=== PATIENT | female | born 1950 | race Caucasian/White ===

== ENCOUNTER 2017-02-15 14:00 | Inpatient (IN) ==
[2017-02-15] MEDS ORDERED: *HR* OxyCODONE Immed Rel 5 MG TABLET PO PRN (14:51)
--- NOTE | 2017-02-15 16:07 | Internal Med History&Physical ---
Date of Encounter: 02/15/17 Time of Encounter: 16:00 Assessment and Plan (1) Status post total left knee replacement Current visit: No Status: Acute Patient with left total knee replacement. Left knee appears slightly swollen but only minimal limits to range of motion noted. Dressing is dry and intact. Patient states pain is currently fairly well controlled with oral medications and Lidoderm patch. Patient been evaluated by physical therapy. We will continue to monitor patient these for pain medications after starting physical therapy. Patient currently using a walker (2) Asthma Current visit: No Status: Chronic No acute issues. Patient with long historyare. of tobacco abuse. Lungs currently are clear and patient denies any dyspnea. No productive cough. We will continue with current medications and plan of care Qualifiers: Asthma severity: unspecified severity Asthma persistence: unspecified Asthma complication type: unspecified Qualified Code(s): J45.909 - Unspecified asthma, uncomplicated (3) Nicotine dependence Current visit: No Status: Chronic No acute issues. Patient along history of smoking. We will continue to monitor patient seen for possible nicotine patch. Will recommend patient for smoking cessation Qualifiers: Nicotine product type: unspecified Substance use status: unspecified nicotine-induced disorder Qualified Code(s): F17.209 - Nicotine dependence, unspecified, with unspecified nicotine-induced disorders (4) HTN (hypertension) Current visit: No Status: Chronic Vital signs are stable. We will continue with current medications Qualifiers: Hypertension type: unspecified Qualified Code(s): I10 - Essential (primary ) hypertension Internal Medicine - H&P: HPI Admitted From: Intrahospital Transfer Plans for Post Hospital Care: Home History of present illness: Ms. Batista is a 67 year old female who was admitted for physical therapy and rehabilitation after having a left total knee replacement. Patient states a history of rheumatoid arthritis and osteoarthritis and states that she believes that she may need surgery in the future on the right knee. Patient states that she has had an unsteady gait and has lost all her at home for several months prior to surgery. Patient states that her rheumatoid arthritis has progressed and she started on steroid therapy over the past year. Patient currently states that her pain was been fairly well managed her current medications. Patient has a history of COPD, but denies any current shortness of breath or productive cough. Past Med Surg Social Fam HX - Past Medical History Source: patient Medical history: asthma, COPD, hypertension, RA Psychiatric history: no psych history - Social History Smoking Status: Current every day smoker Alcohol use: heavy Drug use: none - Family History Father Hx Family GI Disorders: Yes (Gerd) Internal Medicine - H&P: Meds Albuterol Sulfate [Proair Hfa] 2 puff IH Q4H PRN 01/24/16 [History] Cetirizine HCl [Zyrtec] 10 mg PO DAILY 01/24/16 [History] Montelukast [Singulair] 10 mg PO QPM 01/24/16 [History] Paroxetine [Paxil] 30 mg PO DAILY 01/24/16 [History] amLODIPine [Norvasc] 10 mg PO DAILY 01/24/16 [History] Aspirin Enteric Coated [Aspirin EC] 325 mg PO DAILY 21 Days #21 tablet. [Rx] Alendronate Sodium 70 mg PO WE 02/13/17 [History] Cyanocobalamin (Vitamin B-12) [Vitamin B12] 1,000 mcg PO DAILY 02/13/17 [History ] Etanercept [Enbrel] 50 mg SQ WE 02/13/17 [History] Hydrocodone/Acetaminophen [Osseo 5-325 Tablet] 1 tab PO TID PRN 02/13/17 [ History] Hydroxychloroquine [Plaquenuil] 200 mg PO BID 02/13/17 [History] Linaclotide [Linzess] 290 mcg PO DAILY 02/13/17 [History] Mometasone/Formoterol [Dulera 200 Mcg/5 Mcg Inhaler] 2 puff IH BID 02/13/17 [ History] predniSONE [PredniSONE] 5 mg PO DAILY 02/13/17 [History] raNITIdine HCl [Ranitidine HCl] 150 mg PO DAILY 02/13/17 [History] 3 Allergy/AdvReac Type Severity Reaction Status Date / Time No Known Allergies Allergy Verified 02/03/17 15:41 All Systems PM: A 10-system review of systems was performed and is negative for pertinent findings except as documented above in the HPI. - Constitutional Constitutional: as per HPI, no chills, no fever(s), no night sweats - EENT Eyes: no change in vision, no discharge, no pain, no photophobia Ears: no ear discharge, no ear pain, no tinnitus Nose, mouth and throat: no dysphagia, no nasal discharge, no neck pain, no sore throat - Cardiovascular Cardiovascular ROS IM: no chest pain, no diaphoresis, no dyspnea, no lightheadedness, no palpitations, no syncope - Respiratory Respiratory: as per HPI, no cough, no dyspnea, no wheezing, no excessive phlegm production - Gastrointestinal Gastrointestinal: no abdominal pain, no diarrhea, no hematemesis, no hematochezia, no melena, no nausea, no vomiting - Genitourinary Genitourinary: no change in urinary stream, no dysuria, no flank pain, no hematuria - Musculoskeletal Musculoskeletal ROS IM: joint swelling, no numbness, no tingling Additional comments: She states that she continues to have chronic pain to her right knee and lower back, which she states secondary to her arthritis - Integumentary Integumentary IM: as per HPI, no rash, no unusual bruising - Neurological Neurological ROS: no confusion, no convulsions, no focal weakness, no numbness, no tingling, no tremor(s) - Constitutional General appearance: Present: A&O X 3, pleasant - Head Head exam: Present: atraumatic, normocephalic - Eye Eye exam: Present: PERRL, conjuntiva pink, sclera anicteric Pupils: Present: PERRL - Neck Neck exam general surgery: Present: supple, trachea midline. Absent: lymphadenopathy - Respiratory Respiratory exam: Present: CTAB. Absent: accessory muscle use, rales, rhonchi, wheezes Additional comments: Lungs clear to auscultation and upper malhotra and diminished throughout lower basis - Cardiovascular Cardiovascular exam: Present: RRR, +S1, +S2. Absent: diastolic murmur, gallop, rubs, systolic murmur - GI/Abdominal GI/Abdominal exam: Present: normal bowel sounds, soft, no peritoneal signs. Absent: distended, tenderness - Extremities Exam Extremities exam: Present: warm, radial pulses palpable and symmetrical. Absent : calf tenderness, cyanotic, pedal edema Additional comments: Left knee appears slightly swollen. No ecchymosis. Dressing is dry and intact - Neurological Exam Neurological exam: Present: CN II-XII intact, oriented X3, no focal deficits. Absent: pronater drift, facial droop, speech deficit - Skin Skin exam: Present: dry, intact
[2017-02-15] MEDS: *HR* OxyCODONE Immed Rel 5 MG TABLET PO PRN ×2 (18:02→21:59)
[2017-02-15] MEDS: FORMOTEROL IH SCH (20:40)
[2017-02-15] MEDS: MOMETASONE IH SCH (20:40)
[2017-02-16 05:43] LABS: Basophils % 0.4 %; Eosinophils % 0.2 %; Hematocrit 28.3 % (35.3-44.9); Hemoglobin 9.5 g/dL (11.5-15.4); Immature Granulocytes % 0.5 % (0-4); Lymphocytes # 0.9 K/mcL (0.6-4.6); Mean Corpuscular HGB Conc 33.6 g/dL (31.6-35.5); Mean Corpuscular Hemoglobin 29.8 pg (28.0-33.3); Mean Corpuscular Volume 88.7 fL (83.0-100.0); Mean Platelet Volume 9.8 fL (9.4-12.4); Monocytes # 1.2 K/mcL (0.0-1.3); Monocytes % 11.8 %; Neutrophils # 7.7 K/mcL (1.6-8.9); Platelet Count 413 K/mcL (140-400); Red Blood Count 3.19 M/mcL (3.82-4.97); Red Cell Distribution Width 13.1 % (11.5-14.5); Segmented Neutrophils % 78.1 %
[2017-02-16 05:51] LABS: INR 1.2; Prothrombin Time 12.6 Seconds (9.4-12.1)
[2017-02-16 06:05] LABS: Alanine Aminotransferase 15 Units/L (0-55); Albumin 2.4 g/dL (3.5-5.0); Albumin/Globulin Ratio 0.8 (1.1-2.2); Alkaline Phosphatase 69 Units/L (38-126); Aspartate Amino Transferase 21 Units/L (5-34); BUN/Creatinine Ratio 15 (6-26); Bilirubin,Total 0.6 mg/dL (0.2-1.2); Blood Urea Nitrogen 9 mg/dL (7-20); Calcium 9.2 mg/dL (8.6-10.8); Carbon Dioxide 28 mEq/L (19-29); Chloride 93 mEq/L (98-109); Globulin 3.1 g/dL (2.4-3.5); Glucose 117 mg/dL (70-99); Magnesium 1.8 mg/dL (1.6-2.6); Osmolality,Calculated 270 (280-300); Potassium 3.6 mEq/L (3.5-4.5); Sodium 130 mEq/L (136-145); Total Protein 5.5 g/dL (6.0-8.3); eGFR For African Americans > 60 (> 60); eGFR For Non-African Americans > 60 (> 60)
[2017-02-16 06:07] LABS: BUN/Creatinine Ratio 15 (6-26); Blood Urea Nitrogen 9 mg/dL (7-20); Calcium 9.2 mg/dL (8.6-10.8); Carbon Dioxide 28 mEq/L (19-29); Chloride 93 mEq/L (98-109); Glucose 115 mg/dL (70-99); Osmolality,Calculated 270 (280-300); Potassium 3.6 mEq/L (3.5-4.5); Sodium 130 mEq/L (136-145); eGFR For African Americans > 60 (> 60); eGFR For Non-African Americans > 60 (> 60)
[2017-02-16] MEDS: *HR* OxyCODONE Immed Rel 5 MG TABLET PO PRN ×4 (06:28→21:47)
[2017-02-16] MEDS: amLODIPine 5 MG TABLET PO SCH (09:00)
[2017-02-16] MEDS: Cyanocobalamin (B-12) 1,000 MCG TABLET PO SCH (09:00)
[2017-02-16] MEDS: Famotidine 20 MG TABLET PO SCH (09:00)
[2017-02-16] MEDS: Loratadine 10 MG TABLET PO SCH (09:00)
[2017-02-16] MEDS: FORMOTEROL IH SCH ×2 (09:02→21:47)
[2017-02-16] MEDS: MOMETASONE IH SCH ×2 (09:02→21:47)
[2017-02-16] MEDS: (Linaclotide [Linzess] 290 MCG) PO SCH (09:02)
--- NOTE | 2017-02-16 10:59 | Internal Med Progress Note ---
Date of Encounter: 02/16/17 Time of Encounter: 10:57 - Assessment and plan (1) Status post total left knee replacement Current Visit: No Status: Acute Assessment and plan: pain controlled with oxycodone. continue PT/OT. f/u with ortho as scheduled. (2) Acute blood loss anemia Current Visit: No Status: Acute Assessment and plan: hgb stable. will monitor labs (3) Constipation Current Visit: Yes Status: Acute Assessment and plan: will order miralax Qualifiers: Constipation type: slow transit constipation Qualified Code(s): K59.01 - Slow transit constipation (4) HTN (hypertension) Current Visit: No Status: Chronic Assessment and plan: controlled with norvasc. monitor BP Qualifiers: Hypertension type: unspecified Qualified Code(s): I10 - Essential (primary ) hypertension - Time Spent With Patient less than 15 minutes - Subjective Interval history: pt states left knee pain controlled with oxycodone. incision with drsg dry and intact. no signs of infection. c/o constipation. states last BM was prior to surgery 4 days ago. denies fever, chills, NVD or SOB. participating well with therapy. - Constitutional Vitals: Temp Pulse Resp BP Pulse Ox 99.2 F 89 16 142/73 99 02/16/17 07:37 02/16/17 07:37 02/16/17 07:37 02/16/17 07:37 02/16/17 07:37 General appearance: Present: A&O X 3, pleasant, no acute distress, answers questions appropriately - Head Head exam: Present: atraumatic, normocephalic - Eye Eye exam: Present: PERRL, conjuntiva pink, sclera anicteric Pupils: Present: PERRL - Neck Neck exam general surgery: Present: supple, trachea midline. Absent: lymphadenopathy - Respiratory Respiratory exam: Present: CTAB. Absent: accessory muscle use, rales, rhonchi, wheezes - Cardiovascular Cardiovascular exam: Present: RRR, +S1, +S2. Absent: diastolic murmur, gallop, rubs, systolic murmur - GI/Abdominal GI/Abdominal exam: Present: normal bowel sounds, soft, no peritoneal signs. Absent: distended, tenderness - Extremities Exam Extremities exam: Present: warm, radial pulses palpable and symmetrical. Absent : calf tenderness, cyanotic, pedal edema Additional comments: left knee, slight edema to surrounding incision. drg dry and intact. no signs of infection. - Neurological Exam Neurological exam: Present: CN II-XII intact, oriented X3, no focal deficits. Absent: pronater drift, facial droop, speech deficit - Skin Skin exam: Present: dry, intact Internal Medicine: Result - Labs CBC & Chem 7: 02/16/17 05:05 02/16/17 05:05 Labs: Short CBC 02/16/17 Range/Units 05:05 WBC 9.9 (4.3-11.1) K/mcL Hgb 9.5 L (11.5-15.4) g/dL Hct 28.3 L (35.3-44.9) % Plt Count 413 H (140-400) K/mcL Neutrophils # 7.7 (1.6-8.9) K/mcL BMP 02/16/17 02/16/17 05:05 05:05 Sodium 130 L 130 L Potassium 3.6 3.6 Chloride 93 L 93 L Carbon Dioxide 28 28 BUN 9 9 Creatinine 0.62 0.62 Glucose 115 H 117 H Calcium 9.2 9.2 Liver Function 02/16/17 Range/Units 05:05 Total Bilirubin 0.6 (0.2-1.2) mg/dL AST 21 (5-34) Units/L ALT 15 (0-55) Units/L Alkaline Phosphatase 69 (38-126) Units/L Albumin 2.4 L (3.5-5.0) g/dL - ABG Interpretation ABG results: PT/INR, D-dimer PT 12.6 Seconds (9.4-12.1) H 02/16/17 05:05 - VTE Documentation of Mechanical Device: Graduated compression elastic hosiery Consult Discharge Plan - Plan Referrals: Tawny Ramirez, [employer] GE[employer] MECHANIC [Primary Care Provider] -
[2017-02-17] MEDS: *HR* OxyCODONE Immed Rel 5 MG TABLET PO PRN ×4 (02:22→21:21)
[2017-02-17] MEDS: amLODIPine 5 MG TABLET PO SCH (09:26)
[2017-02-17] MEDS: Loratadine 10 MG TABLET PO SCH (09:26)
[2017-02-17] MEDS: Famotidine 20 MG TABLET PO SCH (09:26)
[2017-02-17] MEDS: Cyanocobalamin (B-12) 1,000 MCG TABLET PO SCH (09:27)
[2017-02-17] MEDS: FORMOTEROL IH SCH ×2 (09:28→21:20)
[2017-02-17] MEDS: MOMETASONE IH SCH ×2 (09:28→21:20)
[2017-02-17] MEDS: (Linaclotide [Linzess] 290 MCG) PO SCH (09:28)
--- NOTE | 2017-02-17 12:47 | Internal Med Progress Note ---
Date of Encounter: 02/17/17 Time of Encounter: 12:45 - Assessment and plan (1) Status post total left knee replacement Current Visit: No Status: Acute Assessment and plan: States pain controlled with oxycodone. Will continue PT/OT. f/u with ortho as scheduled. (2) Asthma Current Visit: No Status: Chronic Assessment and plan: No acute issues. Denies any dyspnea or productive cough. Will continue with current medications. Continue to mobilize Qualifiers: Asthma severity: unspecified severity Asthma persistence: unspecified Asthma complication type: unspecified Qualified Code(s): J45.909 - Unspecified asthma, uncomplicated (3) Nicotine dependence Current Visit: No Status: Chronic Assessment and plan: No acute issues. Qualifiers: Nicotine product type: unspecified Substance use status: unspecified nicotine-induced disorder Qualified Code(s): F17.209 - Nicotine dependence, unspecified, with unspecified nicotine-induced disorders (4) HTN (hypertension) Current Visit: No Status: Chronic Assessment and plan: Vital signs are stable. We will continue with current medications Qualifiers: Hypertension type: unspecified Qualified Code(s): I10 - Essential (primary ) hypertension - Subjective Interval history: Patient states that her knee pain has diminished, but remains minimal drain therapy. He denies any other discomfort and shortness of breath. - Constitutional Vitals: Temp Pulse Resp BP Pulse Ox 99.8 F H 92 15 138/80 90 02/17/17 09:00 02/17/17 09:00 02/17/17 09:00 02/17/17 09:00 02/17/17 09:00 General appearance: Present: A&O X 3, pleasant, no acute distress, answers questions appropriately - Head Head exam: Present: atraumatic, normocephalic - Eye Eye exam: Present: PERRL, conjuntiva pink, sclera anicteric Pupils: Present: PERRL - Neck Neck exam general surgery: Present: supple, trachea midline. Absent: lymphadenopathy - Respiratory Respiratory exam: Present: CTAB. Absent: accessory muscle use, rales, rhonchi, wheezes - Cardiovascular Cardiovascular exam: Present: RRR, +S1, +S2. Absent: diastolic murmur, gallop, rubs, systolic murmur - GI/Abdominal GI/Abdominal exam: Present: normal bowel sounds, soft, no peritoneal signs. Absent: distended, tenderness - Extremities Exam Extremities exam: Present: warm, radial pulses palpable and symmetrical. Absent : calf tenderness, cyanotic, pedal edema - Neurological Exam Neurological exam: Present: CN II-XII intact, oriented X3, no focal deficits. Absent: pronater drift, facial droop, speech deficit - Skin Skin exam: Present: dry, intact Internal Medicine: Result - Labs CBC & Chem 7: 02/16/17 05:05 02/16/17 05:05 - ABG Interpretation ABG results: PT/INR, D-dimer PT 12.6 Seconds (9.4-12.1) H 02/16/17 05:05 - VTE Documentation of Mechanical Device: Graduated compression elastic hosiery Consult Discharge Plan - Plan Referrals: Tawny Ramirez [employer] RECEIVER [Primary Care Provider] -
[2017-02-17] MEDS ORDERED: predniSONE 20 MG TABLET PO ONE (15:20)
[2017-02-18] MEDS: *HR* OxyCODONE Immed Rel 5 MG TABLET PO PRN ×4 (06:14→22:55)
[2017-02-18] MEDS: predniSONE 20 MG TABLET PO SCH (09:32)
[2017-02-18] MEDS: amLODIPine 5 MG TABLET PO SCH (09:32)
[2017-02-18] MEDS: (Linaclotide [Linzess] 290 MCG) PO SCH (09:33)
[2017-02-18] MEDS: Cyanocobalamin (B-12) 1,000 MCG TABLET PO SCH (09:33)
[2017-02-18] MEDS: Cholecalciferol (D-3) 1,000 UNIT TABLET PO SCH (09:33)
[2017-02-18] MEDS: Loratadine 10 MG TABLET PO SCH (09:33)
[2017-02-18] MEDS: Famotidine 20 MG TABLET PO SCH (09:33)
[2017-02-18] MEDS: FORMOTEROL IH SCH ×2 (09:34→22:55)
[2017-02-18] MEDS: MOMETASONE IH SCH ×2 (09:34→22:55)
[2017-02-18 11:29] LABS: Hematocrit 27.7 % (35.3-44.9); Hemoglobin 9.3 g/dL (11.5-15.4); Mean Corpuscular HGB Conc 33.6 g/dL (31.6-35.5); Mean Corpuscular Hemoglobin 29.3 pg (28.0-33.3); Mean Corpuscular Volume 87.4 fL (83.0-100.0); Mean Platelet Volume 10.1 fL (9.4-12.4); Platelet Count 534 K/mcL (140-400); Red Blood Count 3.17 M/mcL (3.82-4.97); Red Cell Distribution Width 12.8 % (11.5-14.5)
[2017-02-18 11:41] LABS: BUN/Creatinine Ratio 22 (6-26); Blood Urea Nitrogen 16 mg/dL (7-20); Calcium 9.8 mg/dL (8.6-10.8); Carbon Dioxide 27 mEq/L (19-29); Chloride 92 mEq/L (98-109); Glucose 137 mg/dL (70-99); Osmolality,Calculated 273 (280-300); Potassium 3.8 mEq/L (3.5-4.5); Sodium 130 mEq/L (136-145); eGFR For African Americans > 60 (> 60); eGFR For Non-African Americans > 60 (> 60)
--- NOTE | 2017-02-18 12:20 | Internal Med Progress Note ---
Date of Encounter: 02/18/17 Time of Encounter: 12:18 - Assessment and plan (1) Asthma Current Visit: No Status: Chronic Assessment and plan: -Denies any dyspnea or productive cough. -Will continue with current medications. -Continue to mobilize Qualifiers: Asthma severity: unspecified severity Asthma persistence: unspecified Asthma complication type: unspecified Qualified Code(s): J45.909 - Unspecified asthma, uncomplicated (2) Nicotine dependence Current Visit: No Status: Chronic Assessment and plan: No acute issues. Qualifiers: Nicotine product type: unspecified Substance use status: unspecified nicotine-induced disorder Qualified Code(s): F17.209 - Nicotine dependence, unspecified, with unspecified nicotine-induced disorders (3) HTN (hypertension) Current Visit: No Status: Chronic Assessment and plan: Vital signs are stable. We will continue with current medications Qualifiers: Hypertension type: unspecified Qualified Code(s): I10 - Essential (primary ) hypertension (4) Status post total left knee replacement Current Visit: No Status: Acute Assessment and plan: States pain controlled with oxycodone. Will continue PT/OT. f/u with ortho as scheduled. (5) Acute blood loss anemia Current Visit: No Status: Acute Assessment and plan: -hgb stable. -will monitor labs (6) Constipation Current Visit: Yes Status: Acute Assessment and plan: - miralax - added senna Qualifiers: Constipation type: slow transit constipation Qualified Code(s): K59.01 - Slow transit constipation (7) Hyponatremia Current Visit: Yes Status: Acute Assessment and plan: - levels at 130, possible secondary to prednisone - will continue to monitor, pt asymptomatic (8) Leukocytosis Current Visit: Yes Status: Acute Assessment and plan: -reactive seconary to prednisone, with elevated temp without any fevers. - Will continue to monitor vitals and labs daily Qualifiers: Leukocytosis type: unspecified Qualified Code(s): D72.829 - Elevated white blood cell count, unspecified - Time Spent With Patient 25 - 35 minutes - Subjective Interval history: No major complaints today. Denied any SOB, CP or GI/ symptoms. Still constipated though and experenced hypoxia this morning that placed her on 1L o foxygen. Believes that not having her dulera inhalers might have affected her by being on the singulair Denied any wheezing or SOB, hasn't been using her SI - Constitutional Vitals: Temp Pulse Resp BP Pulse Ox 98.4 F 81 16 107/66 90 02/18/17 07:33 02/18/17 07:33 02/17/17 19:23 02/18/17 07:33 02/18/17 07:33 General appearance: Present: A&O X 3, pleasant, no acute distress, answers questions appropriately - Head Head exam: Present: atraumatic, normocephalic - Eye Eye exam: Present: PERRL, conjuntiva pink, sclera anicteric Pupils: Present: PERRL - Neck Neck exam general surgery: Present: supple, trachea midline. Absent: lymphadenopathy - Respiratory Respiratory exam: Present: CTAB. Absent: accessory muscle use, rales, rhonchi, wheezes - Cardiovascular Cardiovascular exam: Present: RRR, +S1, +S2. Absent: diastolic murmur, gallop, rubs, systolic murmur - GI/Abdominal GI/Abdominal exam: Present: normal bowel sounds, soft, no peritoneal signs. Absent: distended, tenderness - Extremities Exam Extremities exam: Present: warm, radial pulses palpable and symmetrical. Absent : calf tenderness, cyanotic, pedal edema - Neurological Exam Neurological exam: Present: CN II-XII intact, oriented X3, no focal deficits. Absent: pronater drift, facial droop, speech deficit - Skin Skin exam: Present: dry, intact Internal Medicine: Result - Labs CBC & Chem 7: 02/18/17 10:47 02/18/17 10:47 Labs: Short CBC 02/18/17 Range/Units 10:47 WBC 12.0 H (4.3-11.1) K/mcL Hgb 9.3 L (11.5-15.4) g/dL Hct 27.7 L (35.3-44.9) % Plt Count 534 H (140-400) K/mcL BMP 02/18/17 10:47 Sodium 130 L Potassium 3.8 Chloride 92 L Carbon Dioxide 27 BUN 16 Creatinine 0.74 Glucose 137 H Calcium 9.8 - ABG Interpretation ABG results: PT/INR, D-dimer PT 12.6 Seconds (9.4-12.1) H 02/16/17 05:05 - VTE Documentation of Mechanical Device: Graduated compression elastic hosiery Consult Discharge Plan - Plan Referrals: Tawny Ramirez, CH[employer] BUILDER [Primary Care Provider] -
[2017-02-18] MEDS: Sennosides 8.6 MG TABLET PO SCH (14:35)
[2017-02-19] MEDS: predniSONE 20 MG TABLET PO SCH (09:46)
[2017-02-19] MEDS: Cholecalciferol (D-3) 1,000 UNIT TABLET PO SCH (09:47)
[2017-02-19] MEDS: amLODIPine 5 MG TABLET PO SCH (09:47)
[2017-02-19] MEDS: Loratadine 10 MG TABLET PO SCH (09:47)
[2017-02-19] MEDS: Sennosides 8.6 MG TABLET PO SCH (09:47)
[2017-02-19] MEDS: Cyanocobalamin (B-12) 1,000 MCG TABLET PO SCH (09:47)
[2017-02-19] MEDS: Famotidine 20 MG TABLET PO SCH (09:47)
[2017-02-19] MEDS: (Linaclotide [Linzess] 290 MCG) PO SCH (09:48)
[2017-02-19] MEDS: FORMOTEROL IH SCH ×2 (09:48→20:51)
[2017-02-19] MEDS: MOMETASONE IH SCH ×2 (09:48→20:51)
--- NOTE | 2017-02-19 11:34 | Internal Med Progress Note ---
Date of Encounter: 02/19/17 Time of Encounter: 11:32 - Assessment and plan (1) Asthma Current Visit: No Status: Chronic Assessment and plan: -Denies any dyspnea or productive cough. -Will continue with current medications. -Continue to mobilize Qualifiers: Asthma severity: unspecified severity Asthma persistence: unspecified Asthma complication type: unspecified Qualified Code(s): J45.909 - Unspecified asthma, uncomplicated (2) Nicotine dependence Current Visit: No Status: Chronic Assessment and plan: No acute issues. - pt declined nicotine patch today - discussed that she only smokes 6 cig daily, and usually does so with 5-7 beers Qualifiers: Nicotine product type: unspecified Substance use status: unspecified nicotine-induced disorder Qualified Code(s): F17.209 - Nicotine dependence, unspecified, with unspecified nicotine-induced disorders (3) HTN (hypertension) Current Visit: No Status: Chronic Assessment and plan: Vital signs are stable. We will continue with current medications Qualifiers: Hypertension type: unspecified Qualified Code(s): I10 - Essential (primary ) hypertension (4) Status post total left knee replacement Current Visit: No Status: Acute Assessment and plan: States pain controlled with oxycodone. Will continue PT/OT. f/u with ortho as scheduled. (5) Acute blood loss anemia Current Visit: No Status: Acute Assessment and plan: -hgb stable continue to be stable -will monitor labs (6) Constipation Current Visit: Yes Status: Acute Assessment and plan: - miralax - added senna Qualifiers: Constipation type: slow transit constipation Qualified Code(s): K59.01 - Slow transit constipation (7) Hyponatremia Current Visit: Yes Status: Acute Assessment and plan: - levels at 130, possible secondary to prednisone, continue to be the same today - possible chronic hyponatremia, possible reset osmostat, unsure but will continue to monitor - pt asymptomatic (8) Leukocytosis Current Visit: Yes Status: Acute Assessment and plan: - reactive secondary to predispose, with elevated temp without any fevers. - Will continue to monitor vitals and labs daily, getting dif tomorrow Qualifiers: Leukocytosis type: unspecified Qualified Code(s): D72.829 - Elevated white blood cell count, unspecified - Time Spent With Patient less than 15 minutes - Subjective Interval history: No major complaints today. Denied any SOB, CP or GI/ symptoms. Still constipated though and experenced hypoxia this morning that placed her on 1L of foxygen. wasn't compliant with her IS Denied any wheezing - Constitutional Vitals: Temp Pulse Resp BP Pulse Ox 98.0 F 81 18 108/54 95 02/18/17 19:00 02/18/17 19:00 02/18/17 19:00 02/18/17 19:00 02/18/17 19:00 General appearance: Present: A&O X 3, pleasant, no acute distress, answers questions appropriately - Head Head exam: Present: atraumatic, normocephalic - Eye Eye exam: Present: PERRL, conjuntiva pink, sclera anicteric Pupils: Present: PERRL - Neck Neck exam general surgery: Present: supple, trachea midline. Absent: lymphadenopathy - Respiratory Respiratory exam: Present: decreased breath sounds, rhonchi. Absent: accessory muscle use, rales, wheezes Additional comments: Possible rales on the left lower lung base - Cardiovascular Cardiovascular exam: Present: RRR, +S1, +S2. Absent: diastolic murmur, gallop, rubs, systolic murmur - GI/Abdominal GI/Abdominal exam: Present: normal bowel sounds, soft, no peritoneal signs. Absent: distended, tenderness - Extremities Exam Extremities exam: Present: warm, radial pulses palpable and symmetrical. Absent : calf tenderness, cyanotic, pedal edema - Neurological Exam Neurological exam: Present: CN II-XII intact, oriented X3, no focal deficits. Absent: pronater drift, facial droop, speech deficit - Skin Skin exam: Present: dry, intact Internal Medicine: Result - Labs CBC & Chem 7: 02/18/17 10:47 02/18/17 10:47 Labs: BMP 02/18/17 10:47 Sodium 130 L Potassium 3.8 Chloride 92 L Carbon Dioxide 27 BUN 16 Creatinine 0.74 Glucose 137 H Calcium 9.8 - ABG Interpretation ABG results: PT/INR, D-dimer PT 12.6 Seconds (9.4-12.1) H 02/16/17 05:05 - VTE Documentation of Mechanical Device: Graduated compression elastic hosiery Consult Discharge Plan - Plan Referrals: Tawny Ramirez, CHILD PROTECTIVE INVESTIGATOR [Primary Care Provider] -
[2017-02-19] MEDS: *HR* OxyCODONE Immed Rel 5 MG TABLET PO PRN ×2 (16:53→20:51)
[2017-02-20] MEDS: *HR* OxyCODONE Immed Rel 5 MG TABLET PO PRN ×2 (04:50→20:56)
[2017-02-20 05:25] LABS: Hematocrit 25.4 % (35.3-44.9); Hemoglobin 8.4 g/dL (11.5-15.4); Mean Corpuscular HGB Conc 33.1 g/dL (31.6-35.5); Mean Corpuscular Hemoglobin 29.4 pg (28.0-33.3); Mean Corpuscular Volume 88.8 fL (83.0-100.0); Platelet Count 545 K/mcL (140-400); Red Blood Count 2.86 M/mcL (3.82-4.97)
[2017-02-20 05:49] LABS: BUN/Creatinine Ratio 27 (6-26); Blood Urea Nitrogen 17 mg/dL (7-20); Carbon Dioxide 30 mEq/L (19-29); Chloride 100 mEq/L (98-109); Glucose 106 mg/dL (70-99); Osmolality,Calculated 288 (280-300); Potassium 3.7 mEq/L (3.5-4.5); Sodium 138 mEq/L (136-145); eGFR For African Americans > 60 (> 60); eGFR For Non-African Americans > 60 (> 60)
[2017-02-20] MEDS: Loratadine 10 MG TABLET PO SCH (08:59)
[2017-02-20] MEDS: predniSONE 20 MG TABLET PO SCH (09:00)
[2017-02-20] MEDS: amLODIPine 5 MG TABLET PO SCH (09:00)
[2017-02-20] MEDS: Cholecalciferol (D-3) 1,000 UNIT TABLET PO SCH (09:01)
[2017-02-20] MEDS: Famotidine 20 MG TABLET PO SCH (09:02)
[2017-02-20] MEDS: Cyanocobalamin (B-12) 1,000 MCG TABLET PO SCH (09:02)
[2017-02-20] MEDS: Sennosides 8.6 MG TABLET PO SCH (09:02)
[2017-02-20] MEDS: FORMOTEROL IH SCH ×2 (10:36→20:40)
[2017-02-20] MEDS: (Linaclotide [Linzess] 290 MCG) PO SCH (10:36)
[2017-02-20] MEDS: MOMETASONE IH SCH ×2 (10:36→20:40)
--- NOTE | 2017-02-20 14:37 | Internal Med Progress Note ---
Date of Encounter: 02/20/17 Time of Encounter: 14:36 - Assessment and plan (1) Asthma Current Visit: No Status: Chronic Assessment and plan: -Denies any dyspnea or productive cough. -Will continue with current medications. -Continue to mobilize Qualifiers: Asthma severity: unspecified severity Asthma persistence: unspecified Asthma complication type: unspecified Qualified Code(s): J45.909 - Unspecified asthma, uncomplicated (2) Nicotine dependence Current Visit: No Status: Chronic Assessment and plan: No acute issues. - pt declined nicotine patch today - discussed that she only smokes 6 cig daily, and usually does so with 5-7 beers Qualifiers: Nicotine product type: unspecified Substance use status: unspecified nicotine-induced disorder Qualified Code(s): F17.209 - Nicotine dependence, unspecified, with unspecified nicotine-induced disorders (3) HTN (hypertension) Current Visit: No Status: Chronic Assessment and plan: Vital signs are stable. We will continue with current medications Qualifiers: Hypertension type: unspecified Qualified Code(s): I10 - Essential (primary ) hypertension (4) Status post total left knee replacement Current Visit: No Status: Acute Assessment and plan: States pain controlled with oxycodone. Will continue PT/OT. f/u with ortho as scheduled. (5) Acute blood loss anemia Current Visit: No Status: Acute Assessment and plan: -hgb stable continue to be stable -will monitor labs as needed (6) Constipation Current Visit: Yes Status: Acute Assessment and plan: - miralax - added senna Qualifiers: Constipation type: slow transit constipation Qualified Code(s): K59.01 - Slow transit constipation (7) Hyponatremia Current Visit: Yes Status: Acute Assessment and plan: - levels improved from 130 to 138, possible secondary to prednisone (8) Leukocytosis Current Visit: Yes Status: Acute Assessment and plan: - Rechecked and resolved now, still would be considered reactive, chest x-ray was normal, no signs of infections or pneumonias - Will continue to monitor vitals and labs as needed Qualifiers: Leukocytosis type: unspecified Qualified Code(s): D72.829 - Elevated white blood cell count, unspecified (9) Hypoxia Current Visit: Yes Status: Acute Assessment and plan: - Most likely related to COPD - Worse with exercsion - has Oxygen with ambulation now - Continue IS - Chest x-ray was normal - Time Spent With Patient 25 - 35 minutes - Subjective Interval history: No major complaints today. Denied any SOB, CP or GI/ symptoms. Denied any wheezing - Constitutional Vitals: Temp Pulse Resp BP Pulse Ox 98.6 F 76 15 144/78 91 02/20/17 07:00 02/20/17 07:00 02/19/17 19:01 02/20/17 07:00 02/20/17 07:00 General appearance: Present: A&O X 3, pleasant, no acute distress, answers questions appropriately - Head Head exam: Present: atraumatic, normocephalic - Eye Eye exam: Present: PERRL, conjuntiva pink, sclera anicteric Pupils: Present: PERRL - Neck Neck exam general surgery: Present: supple, trachea midline. Absent: lymphadenopathy - Respiratory Respiratory exam: Present: CTAB. Absent: accessory muscle use, rales, rhonchi, wheezes - Cardiovascular Cardiovascular exam: Present: RRR, +S1, +S2. Absent: diastolic murmur, gallop, rubs, systolic murmur - GI/Abdominal GI/Abdominal exam: Present: normal bowel sounds, soft, no peritoneal signs. Absent: distended, tenderness - Extremities Exam Extremities exam: Present: warm, radial pulses palpable and symmetrical. Absent : calf tenderness, cyanotic, pedal edema Additional comments: left knee incision intact and ROM stable. Strength 5/5 upper and lower extremities - Neurological Exam Neurological exam: Present: CN II-XII intact, oriented X3, no focal deficits. Absent: pronater drift, facial droop, speech deficit - Skin Skin exam: Present: dry, intact Internal Medicine: Result - Labs CBC & Chem 7: 02/20/17 04:25 02/20/17 04:25 Labs: Short CBC 02/20/17 Range/Units 04:25 WBC 9.0 (4.3-11.1) K/mcL Hgb 8.4 L (11.5-15.4) g/dL Hct 25.4 L (35.3-44.9) % Plt Count 545 H (140-400) K/mcL BMP 02/20/17 04:25 Sodium 138 D Potassium 3.7 Chloride 100 Carbon Dioxide 30 H BUN 17 Creatinine 0.62 Glucose 106 H Calcium 9.0 - ABG Interpretation ABG results: PT/INR, D-dimer PT 12.6 Seconds (9.4-12.1) H 02/16/17 05:05 - VTE Documentation of Mechanical Device: Graduated compression elastic hosiery Consult Discharge Plan - Plan Referrals: Tawny Ramirez, ANÍBAL [Primary Care Provider] -
[2017-02-21] MEDS: *HR* OxyCODONE Immed Rel 5 MG TABLET PO PRN ×2 (01:35→05:34)
[2017-02-21] MEDS: Cyanocobalamin (B-12) 1,000 MCG TABLET PO SCH (08:55)
[2017-02-21] MEDS: predniSONE 20 MG TABLET PO SCH (08:55)
[2017-02-21] MEDS: Sennosides 8.6 MG TABLET PO SCH (08:56)
[2017-02-21] MEDS: amLODIPine 5 MG TABLET PO SCH (08:57)
[2017-02-21] MEDS: (Linaclotide [Linzess] 290 MCG) PO SCH (08:59)
[2017-02-21] MEDS: Famotidine 20 MG TABLET PO SCH (09:02)
[2017-02-21] MEDS: Cholecalciferol (D-3) 1,000 UNIT TABLET PO SCH (09:02)
[2017-02-21] MEDS: Loratadine 10 MG TABLET PO SCH (09:02)
[2017-02-21] MEDS: FORMOTEROL IH SCH (09:03)
[2017-02-21] MEDS: MOMETASONE IH SCH (09:03)
--- NOTE | 2017-02-21 11:20 | Internal Med Progress Note ---
Date of Encounter: 02/21/17 Time of Encounter: 11:18 - Assessment and plan (1) Status post total left knee replacement Current Visit: No Status: Acute Assessment and plan: States pain controlled with oxycodone. Will continue PT/OT. f/u with ortho as scheduled. (2) Acute blood loss anemia Current Visit: No Status: Acute Assessment and plan: -hgb stable -will monitor labs as needed (3) Constipation Current Visit: Yes Status: Acute Assessment and plan: - improved with miralax -and senna Qualifiers: Constipation type: slow transit constipation Qualified Code(s): K59.01 - Slow transit constipation (4) HTN (hypertension) Current Visit: No Status: Chronic Assessment and plan: Vital signs are stable. We will continue with current medications Qualifiers: Hypertension type: unspecified Qualified Code(s): I10 - Essential (primary ) hypertension - Time Spent With Patient less than 15 minutes - Subjective Interval history: pt states left knee pain controlled with oxycodone. incision with drsg dry and intact. no signs of infection. participating well with therapy. ready to discharge to home today. - Constitutional Vitals: Temp Pulse Resp BP Pulse Ox 98.1 F 70 16 142/109 94 02/21/17 07:01 02/21/17 07:01 02/21/17 07:01 02/21/17 07:01 02/21/17 07:01 General appearance: Present: A&O X 3, pleasant, no acute distress, answers questions appropriately - Head Head exam: Present: atraumatic, normocephalic - Eye Eye exam: Present: PERRL, conjuntiva pink, sclera anicteric Pupils: Present: PERRL - Neck Neck exam general surgery: Present: supple, trachea midline. Absent: lymphadenopathy - Respiratory Respiratory exam: Present: CTAB. Absent: accessory muscle use, rales, rhonchi, wheezes - Cardiovascular Cardiovascular exam: Present: RRR, +S1, +S2. Absent: diastolic murmur, gallop, rubs, systolic murmur - GI/Abdominal GI/Abdominal exam: Present: normal bowel sounds, soft, no peritoneal signs. Absent: distended, tenderness - Extremities Exam Extremities exam: Present: warm, radial pulses palpable and symmetrical. Absent : calf tenderness, cyanotic, pedal edema - Neurological Exam Neurological exam: Present: CN II-XII intact, oriented X3, no focal deficits. Absent: pronater drift, facial droop, speech deficit - Skin Skin exam: Present: dry, intact Additional comments: left knee incision, dry and intact. no signs of infection. Internal Medicine: Result - Labs CBC & Chem 7: 02/20/17 04:25 02/20/17 04:25 - ABG Interpretation ABG results: PT/INR, D-dimer PT 12.6 Seconds (9.4-12.1) H 02/16/17 05:05 - VTE Documentation of Mechanical Device: Graduated compression elastic hosiery Consult Discharge Plan - Plan Instructions: Joint Replacement Surgery (DC) Referrals: mario barreto [Other] - 03/30/17 11:15 am (follow up with orthopaedics) Tawny Ramirez CNP [Primary Care Provider] - 02/23/17 3:00 pm (follow up appointment)
[2017-02-21 12:01] VITALS: BP 118/74
--- NOTE | 2017-02-21 12:43 | Discharge Summary ---
Date of Encounter: 02/21/17 Time of Encounter: 12:30 - Discharge Diagnosis (1) Arthritis of left knee Priority: Secondary Status: Chronic (2) Chronic pain Priority: Secondary Status: Chronic Qualifiers: Chronic pain type: other chronic pain Qualified Code(s): G89.29 - Other chronic pain (3) Asthma Priority: Secondary Status: Chronic Qualifiers: Asthma severity: unspecified severity Asthma persistence: unspecified Asthma complication type: unspecified Qualified Code(s): J45.909 - Unspecified asthma, uncomplicated (4) Nicotine dependence Priority: Secondary Status: Chronic Qualifiers: Nicotine product type: unspecified Substance use status: unspecified nicotine-induced disorder Qualified Code(s): F17.209 - Nicotine dependence, unspecified, with unspecified nicotine-induced disorders (5) HTN (hypertension) Priority: Secondary Status: Chronic Qualifiers: Hypertension type: unspecified Qualified Code(s): I10 - Essential (primary ) hypertension (6) Rheumatoid arthritis Priority: Secondary Status: Acute Qualifiers: Rheumatoid arthritis location: unspecified site Rheumatoid factor presence : without rheumatoid factor Qualified Code(s): M06.00 - Rheumatoid arthritis without rheumatoid factor, unspecified site (7) Status post total left knee replacement Priority: Primary Status: Acute - Discharge Medications Home Medications: Albuterol Sulfate [Proair Hfa] 2 puff IH Q4H PRN 01/24/16 [History] Cetirizine HCl [Zyrtec] 10 mg PO DAILY 01/24/16 [History] Montelukast [Singulair] 10 mg PO QPM 01/24/16 [History] Paroxetine [Paxil] 30 mg PO DAILY 01/24/16 [History] amLODIPine [Norvasc] 10 mg PO DAILY 01/24/16 [History] Aspirin Enteric Coated [Aspirin EC] 325 mg PO DAILY 21 Days #21 tablet. [Rx] Alendronate Sodium 70 mg PO WE 02/13/17 [History] Cyanocobalamin (Vitamin B-12) [Vitamin B12] 1,000 mcg PO DAILY 02/13/17 [History ] Etanercept [Enbrel] 50 mg SQ WE 02/13/17 [History] Hydrocodone/Acetaminophen [[place] 5-325 Tablet] 1 tab PO TID PRN 02/13/17 [ History] Hydroxychloroquine [Plaquenuil] 200 mg PO BID 02/13/17 [History] Linaclotide [Linzess] 290 mcg PO DAILY 02/13/17 [History] Mometasone/Formoterol [Dulera 200 Mcg/5 Mcg Inhaler] 2 puff IH BID 02/13/17 [ History] predniSONE [PredniSONE] 5 mg PO DAILY 02/13/17 [History] raNITIdine HCl [Ranitidine HCl] 150 mg PO DAILY 02/13/17 [History] Allergies/Adverse Reactions: 3 Allergy/AdvReac Type Severity Reaction Status Date / Time No Known Allergies Allergy Verified 02/03/17 15:41 Date of admission: 02/15/17 14:00 Primary care physician: Tawny Ramirez CNP Consults: 02/15/17 15:13 Consult to Occupational Therapy [CONS] Routine Comment: Evaluate, develop and implement POC Reason for Consult: eval Consult to Physical Therapy [CONS] Routine Comment: Evaluate, develop and implement POC Reason for Consult: eval Consult to Recreational Therapy [CONS] Routine Comment: Evaluate, develop and implement POC Consult to Structural Steel Engineer [CONS] Routine Reason for SW Consult: d/c planning - Patient Status Disposition: Home Health Service - Discharge Instructions Instructions: Joint Replacement Surgery (DC) Follow Up With: mario barreto [Other] - 03/30/17 11:15 am (follow up with orthopaedics) Tawny Ramirez CNP [Primary Care Provider] - 02/23/17 3:00 pm (follow up appointment) Interval History: She was admitted postoperatively for therapies and participated well with improvement in actibity. Course was complicated by an exacerbation of her Rheumatoid Arthritis which responded well to Prednisone with taper. She was felt to have improved adequately to return home with self-care and home health for ongoing therapy support INstructed to follow up with her orthopedist, as scheduled. Hospital course: Ms. Batista is a 67 year old female - Time Spent with Patient Total time spent providing and/or coordinating discharge services: Less than 30 minutes - Constitutional Vitals: Temp Pulse Resp BP Pulse Ox 97.7 F 81 16 118/74 95 02/21/17 12:00 02/21/17 12:00 02/21/17 12:00 02/21/17 12:00 02/21/17 12:00 General appearance: Present: A&O X 3, pleasant, no acute distress, answers questions appropriately Exam: See note From Chrissie Medeiros CNP, this date. - VTE Documentation of Mechanical Device: Graduated compression elastic hosiery
[2017-02-22] MEDS ORDERED: predniSONE 5 MG TABLET PO SCH (09:00)
[2017-02-23] MEDS ORDERED: predniSONE 20 MG TABLET PO SCH (09:00)
[2017-02-26] MEDS ORDERED: predniSONE 10 MG TABLET PO SCH (09:00)
[2017-03-01] MEDS ORDERED: predniSONE 20 MG TABLET PO SCH (09:00)
[2017-03-04] MEDS ORDERED: predniSONE 10 MG TABLET PO SCH (09:00)
== END 2017-02-21 14:00 | disposition home health service (06) | DRG 560 ==
LOC: INPGRE 14:00
PROVIDERS: ADMIT Internal Medicine; ATTEND Internal Medicine

== ENCOUNTER 2020-11-11 12:06 | Observation (INO) ==
[2020-11-11] MEDS ORDERED: 0.9 % Sodium Chloride 1,000 ML IVC ONE ×2 (12:14→14:29)
[2020-11-11 12:30] LABS: Basophils # 0.1 K/mcL (0.0-0.2); Basophils % 0.8 %; Eosinophils % 0.2 %; Hematocrit 48.3 % (35.3-44.9); Hemoglobin 16.2 g/dL (11.5-15.4); Immature Granulocytes % 0.2 % (0-4); Lymphocytes # 1.1 K/mcL (0.6-4.6); Lymphocytes % 16.6 %; Mean Corpuscular HGB Conc 33.5 g/dL (31.6-35.5); Mean Corpuscular Volume 92.5 fL (83.0-100.0); Monocytes # 0.7 K/mcL (0.0-1.3); Monocytes % 10.4 %; Neutrophils # 4.7 K/mcL (1.6-8.9); Platelet Count 335 K/mcL (140-400); Red Blood Count 5.22 M/mcL (3.82-4.97); Red Cell Distribution Width 12.7 % (11.5-14.5); Segmented Neutrophils % 71.8 %; White Blood Count 6.5 K/mcL (4.3-11.1)
[2020-11-11 12:32] LABS: Prothrombin Time 10.8 Seconds (9.4-12.1)
[2020-11-11 12:54] LABS: Troponin I 0.04 ng/mL (< 0.04)
[2020-11-11 13:03] LABS: Thyroid Stimulating Hormone 1.558 mcIU/mL (0.340-5.600)
[2020-11-11] MEDS ORDERED: Isovue-370 500 ML BOTTLE IVP ONE (13:11)
[2020-11-11 14:04] LABS: Alanine Aminotransferase 10 Units/L (7-52); Albumin 4.1 g/dL (3.5-5.7); Albumin/Globulin Ratio 1.2 (1.1-2.2); Alkaline Phosphatase 49 Units/L (34-104); Aspartate Amino Transferase 15 Units/L (13-39); BUN/Creatinine Ratio 23 (6-26); Bilirubin,Total 0.8 mg/dL (0.3-1.0); Blood Urea Nitrogen 20 mg/dL (8-23); Calcium 10.1 mg/dL (8.6-10.3); Carbon Dioxide 24 mEq/L (23-29); Chloride 99 mEq/L (98-107); Globulin 3.4 g/dL (2.4-3.5); Glucose 193 mg/dL (70-105); Magnesium 1.9 mg/dL (1.6-2.6); Osmolality,Calculated 290 (280-300); Potassium 3.6 mEq/L (3.5-5.1); Sodium 136 mEq/L (136-145); Total Protein 7.5 g/dL (6.4-8.9); eGFR For African Americans > 60 (> 60); eGFR For Non-African Americans > 60 (> 60)
[2020-11-11 14:46] LABS: Bilirubin,Urine Moderate (Negative); Blood,Urine Moderate (Negative); Clarity,Urine Clear (Clear); Color,Urine Yellow (Yellow); Glucose,Urine (UA) Normal (Normal); Ketones,Urine Negative (Negative); Leukocyte Esterase,Urine Small (Negative); Nitrite,Urine Negative (Negative); Protein,Urine 30 mg/dL (Neg-Trace); Urobilinogen,Urine Normal (Normal)
[2020-11-11 14:59] LABS: Bacteria,Urine Few per hpf (None-Few); Hyaline Casts,Urine Few per lpf (None Seen); WBC,Urine 0-3 per hpf (0-3)
[2020-11-11 15:00] LABS: Squamous Epithelial Cell,Urine Few per hpf (None-Few)
[2020-11-11] MEDS ORDERED: Aspirin 81 MG TAB.CHEW PO ONE (15:47)
[2020-11-11] MEDS ORDERED: Nitroglycerin 1 INCH/GM PACKET TP ONE (15:52)
[2020-11-11] MEDS ORDERED: Naloxone 0.4 MG/ML INJ IVP PRN (19:50)
[2020-11-11] MEDS ORDERED: Ondansetron 4 MG/2 ML VIAL IVP PRN (19:50)
[2020-11-11] MEDS ORDERED: hydrOXYzine pamoate 25 MG CAPSULE PO PRN (19:58)
[2020-11-11] MEDS ORDERED: Nitroglycerin 0.4 MG TAB.SUBL SL PRN (19:58)
[2020-11-11] MEDS ORDERED: Ipratropium/Albuterol Neb 3 ML IH PRN (19:58)
[2020-11-11] MEDS ORDERED: Perflutren Lipid Microsphere 1.3 ML in 0.9 % Sodium Chloride 8.7 ML IVP PRN (19:59)
[2020-11-11] MEDS ORDERED: Acetaminophen 325 MG TABLET PO PRN (20:02)
[2020-11-11] MEDS: Budesonide/Formoterol 160/4.5 1 PUFF INH IH SCH (22:09)
[2020-11-11] MEDS ORDERED: *HR* LORazepam 2 MG/ML VIAL IVP PRN ×2 (22:46)
[2020-11-11] MEDS: Nicotine 21 MG PATCH.TD24 TD SCH (23:43)
[2020-11-11] MEDS: Gabapentin 400 MG CAPSULE PO SCH (23:43)
[2020-11-12 06:12] LABS: Hemoglobin 13.3 g/dL (11.5-15.4); Mean Corpuscular HGB Conc 33.3 g/dL (31.6-35.5); Mean Corpuscular Volume 93.2 fL (83.0-100.0); Mean Platelet Volume 10.4 fL (9.4-12.4); Platelet Count 277 K/mcL (140-400); Red Blood Count 4.29 M/mcL (3.82-4.97); Red Cell Distribution Width 12.7 % (11.5-14.5); White Blood Count 5.9 K/mcL (4.3-11.1)
[2020-11-12 06:38] LABS: BUN/Creatinine Ratio 21 (6-26); Blood Urea Nitrogen 11 mg/dL (8-23); Calcium 8.5 mg/dL (8.6-10.3); Carbon Dioxide 27 mEq/L (23-29); Chloride 105 mEq/L (98-107); Chol/HDL Ratio 3.7 (0-4.9); Cholesterol 173 mg/dL (< 200); Glucose 92 mg/dL (70-105); HDL Cholesterol 47 mg/dL (40-59); LDL Cholesterol,Calculated 107 mg/dL (< 100); Magnesium 1.7 mg/dL (1.6-2.6); Osmolality,Calculated 287 (280-300); Sodium 139 mEq/L (136-145); Triglycerides 97 mg/dL (< 150); eGFR For African Americans > 60 (> 60); eGFR For Non-African Americans > 60 (> 60)
[2020-11-12] MEDS: Budesonide/Formoterol 160/4.5 1 PUFF INH IH SCH (06:43)
[2020-11-12 06:45] LABS: Troponin I 0.06 ng/mL (< 0.04)
[2020-11-12] MEDS: Gabapentin 400 MG CAPSULE PO SCH (08:26)
[2020-11-12] MEDS: Nicotine 21 MG PATCH.TD24 TD SCH (08:27)
[2020-11-12] MEDS ORDERED: Aspirin Enteric Coated 81 MG Tablet PO SCH (09:00)
[2020-11-12] MEDS ORDERED: amLODIPine 5 MG TABLET PO SCH (09:00)
[2020-11-12] MEDS ORDERED: PARoxetine 30 MG TABLET PO SCH (09:00)
[2020-11-12] MEDS ORDERED: 0.9 % Sodium Chloride 1,000 ML IVC SCH (09:15)
[2020-11-12 09:24] LABS: Amphetamine Screen,Urine Negative ng/mL (Cutoff=1000); Barbiturate Screen,Urine Negative ng/mL (Cutoff=200); Benzodiazepines Screen,Urine Negative ng/mL (Cutoff=200); Cannabinoid Screen,Urine Negative ng/mL (Cutoff = 50); Cocaine Screen,Urine Negative ng/mL (Cutoff= 300); Opiate Screen,Urine Negative ng/mL (Cutoff=300); Phencyclidine Screen,Urine Negative ng/mL (Cutoff=25)
[2020-11-12 11:25] VITALS: BP 168/81; PULSE 82; RESP 19; TEMP 98.1; O2SAT 93
[2020-11-12] MEDS ORDERED: Heparin 25,000UNIT/250ML 1/2NS 25,000 UNIT/250 ML IV.SOLN IVC SCH ×2 (11:30→12:00)
[2020-11-12] MEDS ORDERED: *HR* Heparin 5,000 UNIT/ML VIAL IVP ONE (11:50)
[2020-11-12] MEDS ORDERED: *HR* Heparin 5,000 UNIT/ML VIAL IVP PRN (11:50)
[2020-11-12] MEDS ORDERED: *HR* Heparin 5,000 UNIT/ML VIAL ONE (12:02)
[2020-11-12 13:33] LABS: Folate > 22.3 ng/mL (3.0-16.0); Vitamin B12 1205 pg/mL (250-1100)
== END 2020-11-12 14:37 | disposition short-term general hospital (02) ==
LOC: INPGRE 12:06 → EMEROOGRE 12:06 → INPGRE 20:57
PROVIDERS: ADMIT Family Medicine; ATTEND Family Medicine